=== PATIENT | male | born 1950 | race Caucasian/White ===

== ENCOUNTER → 2019-08-04 | Outpatient (CLI) | payer MEDICARE ==
--- NOTE | 2019-08-05 22:01 | MR ---
MR brain without contrast HISTORY: Premature dementia Multiplanar multisequence imaging obtained through the brain Correlation to prior brain MRI 04/08/2012 There is no restricted diffusion. Corpus callosum, pituitary, cervical medullary junction, cerebellop ontine angles are unremarkable. There are normal vascular flow voids. Cortical atrophy is likely age- related. Brain signal is stable, mild periventricular increased signal on inversion recovery T2-weigh noel sequences. The orbits show symmetric appearance. Possible small arachnoid cyst anterior to the ri ght temporal lobe, middle cranial fossa is stable. Paranasal sinuses are well aerated, minimal mucosa l disease in the ethmoid air cells. IMPRESSION: Essentially stable findings, no acute abnormality.
== END | disposition home or self-care (01) ==
LOC: RADMRIMAIN 11:24
PROVIDERS: ATTEND Family Medicine
DX: F03.90 Unspecified dementia, unspecified severity, without behavioral disturbance, psychotic disturbance, mood disturbance, and anxiety (principal)
CPT/HCPCS: 70551